=== PATIENT | male | born 1995 | race Two or more races ===

== ENCOUNTER 2021-03-14 07:11 | Outpatient (CLI) | payer OTHER ==
--- NOTE | 2021-03-14 08:34 | MRI Report ---
PROCEDURE: Lumbar Spine W/O INDICATIONS: LOW BACK PAIN TECHNIQUE: Noncontrast sagittal T1 spin echo and T2 fast echo, sagittal STIR, axial T1 and T2 fast spin echo thr ough the lumbar spine. In cases with scoliosis, additional coronal T2 fast spin echo may be performe d. COMPARISON: None. FINDINGS: Image quality: Excellent. Alignment and Curvature: No plain films are available for comparison. Thus, for numbering purposes, 5 lumbar type vertebral bodies will be presumed for the current report. This should be confirmed with plain film correlation prior to any lumbar spinal intervention. There is loss of normal lumbar lordo sis. There is mild grade 1 retrolisthesis of L4 on L5. Bone Marrow: Marrow is of normal overall signal. No acute vertebral body compression fractures. Mil d reactive signal within the end plates adjacent to the L2-L3, L3-L4, and L4-L5 intervertebral discs. Spinal Cord: Conus medullaris terminates at the level. Visualized cord demonstrates normal sig nal and size. Paraspinous Soft Tissues: No paravertebral masses. T12-L1: Normal in appearance. L1-L2: Mild disc height loss and desiccation. No significant canal, nor foraminal stenosis. L2-L3: Mild disc height loss and desiccation. No significant canal, nor foraminal stenosis. L3-L4: Mild disc height loss and desiccation. Mild diffuse disc bulge. Mild canal stenosis. Mild bi lateral foraminal stenosis. L4-L5: Moderate disc height loss and desiccation. Mild diffuse disc bulge with superimposed right p aracentral protrusion. Mild bilateral facet hypertrophy. Mild epidural lipomatosis. Moderate canal st enosis. Mild bilateral foraminal stenosis. Mild posterior deviation of the right L5 nerve root within the lateral recess. L5-S1: Mild disc height loss and desiccation. Mild diffuse disc bulge. Mild bilateral facet hypertr ophy. No significant canal stenosis. Mild bilateral foraminal stenosis. IMPRESSION: 1. Five lumbar type vertebral bodies were presumed for the purposes of the current report. Correlati on with plainfilms for numbering purposes is recommended prior to any lumbar spinal intervention. 2. Multilevel degenerative disc and facet disease, in addition to epidural lipomatosis and ligamentum flavum hypertrophy. 3. Multilevel canal stenoses, worst at L4-L5, where there is moderate canal stenosis. 4. Right lateral recess stenosis at L4-L5 associated with posterior deviation of the right L5 nerve r oot. Recommend correlation with clinical symptoms to ascertain relevance of this finding. 5. Mild multilevel foraminal stenoses. Reviewed by: Pavan Rubio MD on 03/14/2021 8:33 AM PST Approved by: Pavan Rubio MD on 03/14/2021 8:33 AM PST Station ID: [id number]
== END 2021-03-14 07:12 | disposition home or self-care (01) ==
LOC: DI 07:11
PROVIDERS: ATTEND Physician Assistant
DX: M51.36 Other intervertebral disc degeneration, lumbar region (principal); M47.816 Spondylosis without myelopathy or radiculopathy, lumbar region; M51.37 Other intervertebral disc degeneration, lumbosacral region; M47.817 Spondylosis without myelopathy or radiculopathy, lumbosacral region; E88.2 Lipomatosis, not elsewhere classified